=== PATIENT | female | born 1995 | race Caucasian/White ===

== ENCOUNTER 2020-04-28 20:01 | Emergency (ER) | payer BC, SELFPAY ==
[~2020-04-28] VITALS: Ht 154.9 cm; Wt 68.0 kg
[2020-04-28 20:02] VITALS: Ht 154.9 cm; Wt 68.0 kg
[2020-04-28 21:07] LABS: BASOPHIL % 0.7 % (0-2); PLATELET COUNT 360 x10^3mcL (130-400); RED CELL DISTRIBUTION WIDTH 12.2 % (11.5-14.5)
[2020-04-28 21:13] LABS: CALCIUM 9.1 mg/dL (8.5-10.1); CARBON DIOXIDE 32.4 mmol/L (21-32); CHLORIDE SERUM 103 mmol/L (98-107); CREATININE SERUM 0.9 mg/dL (0.6-1.0); GFR1 > 60 mL/min; GLUCOSE SERUM 100 mg/dL (74-106); POTASSIUM SERUM 4.1 mmol/L (3.5-5.1); SODIUM SERUM 140 mmol/L (136-145)
[2020-04-28 21:21] LABS: MAGNESIUM 2.4 mg/dL (1.8-2.4)
[2020-04-28 23:11] VITALS: BP 116/80
== END 2020-04-28 23:11 | disposition home or self-care (01) ==
LOC: ED 20:01
PROVIDERS: Emergency Medicine
DX: R55 Syncope and collapse (principal); R42 Dizziness and giddiness; Z88.0 Allergy status to penicillin; Z88.8 Allergy status to other drugs, medicaments and biological substances
CPT/HCPCS: J7030